=== PATIENT | male | born 1985 | race African-American/Black ===

== ENCOUNTER 2020-08-26 18:12 | Emergency (ER) | payer OTHER, BC ==
[~2020-08-26] VITALS: Ht 175.3 cm; Wt 86.2 kg
[2020-08-26] MEDS ORDERED: PROSCAR 5MG TABL5 M1 PO (18:27)
[2020-08-26] MEDS ORDERED: IBUPROFEN 800800 M1 PO (20:25)
[2020-08-26] MEDS ORDERED: FLEXERIL PO (20:25)
[2020-08-26 20:52] VITALS: BP 131/54
== END 2020-08-26 20:52 | disposition home or self-care (01) ==
LOC: M.ERS 18:12
DX: S16.1XXA Strain of muscle, fascia and tendon at neck level, initial encounter (principal); S60.812A Abrasion of left wrist, initial encounter; S60.811A Abrasion of right wrist, initial encounter; S00.81XA Abrasion of other part of head, initial encounter; M25.561 Pain in right knee; V89.2XXA Person injured in unspecified motor-vehicle accident, traffic, initial encounter; Y93.89 Activity, other specified; Y92.89 Other specified places as the place of occurrence of the external cause; Y99.8 Other external cause status